=== PATIENT | female | born 1960 | race Caucasian/White ===

== ENCOUNTER 2017-05-21 09:57 | Emergency (ER) | payer OTHER ==
[2017-05-21] MEDS ORDERED: PHENAZOPYRIDINE 100 MG TABLET PO ONE (10:44)
--- NOTE | 2017-05-21 10:48 | ER NURSING DOCUMENTATION ---
Nurse's Notes [facility] Name:Camila Garcia Age:56 yrs Sex:Female :1960 Arrival Date:05/21/2017 Time:09:57 Bed1 Private MD: Diagnosis:Bladder Infection (UTI) Presentation: 05/21 10:01 Acuity: HERNANDEZ 3 lc 10:11 Presenting complaint: Patient states: Hx of UTIs, last 6 months ago. Last noc started rs having burning, frequency and urgency. No f/c, no n/v, no flank pain. Mild lower back pain that is normal for her. Has been getting fair po fluids. No VALADEZ, no dizziness. States the most effective abx for her is amoxicillin. Transition of care: patient was not received from another setting of care. Notified ED Physician of patient's arrival and CC Dr. Lazaro notified. 10:11 Method Of Arrival: Private Vehicle rs Triage Assessment: 10:26 General: Appears comfortable, well developed, well nourished, well groomed, Behavior is rs cooperative, pleasant. Pain: Complains of pain in burning pain with urination Pain does not radiate. Pain currently is 6 out of 10 on a pain scale. Neuro: No deficits noted. Level of Consciousness is awake, alert, Oriented to person, place, time, event. Cardiovascular: No deficits noted. Capillary refill < 3 seconds Heart tones S1 S2 present Murmur absent Edema is absent. Pulses are 3+ in right radial artery. Respiratory: No deficits noted. Respiratory effort is even, unlabored, Respiratory pattern is regular, symmetrical, Breath sounds are clear bilaterally. GI: No deficits noted. Abdomen is flat, non- distended Bowel sounds present X 4 quads. Abd is soft and non tender Denies nausea, vomiting. : Urine is cloudy, Reports burning with urination urgency urinary frequency Denies cramping discharge, incontinence, vaginal bleeding, vaginal itching. Derm: No deficits noted. Skin is pink, warm & dry. Historical: - Allergies: No known drug Allergies; - Home Meds: 1. Synthroid Oral 2. Estradiol Oral 3. Wellbutrin Oral 4. Ambien Oral - PMHx: UTIs; DEPRESSION; insomnia; HYPOTHYROIDISM; - PSHx: HYSTERECTOMY; face lift; - Tetanus: unknown. - Ebola Screening: : Patient negative for fever greater than or equal to 101.5 degrees Fahrenheit, and additional compatible Ebola Virus Disease symptoms. Patient denies exposure to infectious person. Patient denies travel to an Ebola-affected area in the 21 days before illness onset. No symptoms or risks identified at this time. . - Immunization history: Unable to Obtain. - Social history: Smoking status: Patient states was never smoker of tobacco. Patient uses alcohol occasionally. Screenin:38 Infectious Disease Risk None. Abuse screen: Denies threats or abuse. Nutritional rs screening: No deficits noted. Assessment: 10:38 See Triage Assessment done by same RN. rs Vital Signs: 10:20 BP 126 / 66; Pulse 85; Resp 18; Temp 97.9; Pulse Ox 95% on R/A; Pain 5/10; rs ED Course: 10:00 Patient arrived in ED. dp 10:01 Triage completed. 10:10 Gissell Murrell RN is Primary Nurse. rs 10:11 Miguel Angel Lazaro MD is Attending Physician. tl1 10:11 Notified ED Physician of patient's arrival and chief complaint. Dr. Lazaro notified. Arm rs band placed on Bed in low position Call Light in Reach HOB Elevated Side rails up x1. Urine obtained. 10:40 Valuables Remains with patient. Door closed. Noise minimized. Verbal reassurance given. rs Administered Medications: 10:33 Drug: Pyridium 200 mg; Route: PO; rs 10:47 Follow up: Response: No adverse reaction rs Point of Care Testing: Urine Dip: 10:20 pH: 6.0; ; Specific [place]: 1.025; Ketones: Negative; Glucose: Negative; Protein: rs Positive (++); Leukocytes: Positive; Nitrite: Positive (+) ; Blood: Large (+++); Bilirubin: Negative ; Urobilinogen: NormalOther: cloudy yellow Outcome: 10:41 Discharge ordered by MD. tl1 10:47 Discharged to home ambulatory. rs 10:47 Condition: good 10:47 Discharge instructions given to patient, Instructed on discharge instructions, follow up and referral plans. medication usage, Demonstrated understanding of instructions, medications, Prescriptions given X 2. 10:48 Patient left the ED. rs 05/22 10:26 Discharge F/U Call: Unable to reach: no answer rh Signatures: Gissell Murrell RN RN rs Coleman, Linda, RN RN lc Leigh, Tom, MD MD tl1 Shantel Asif Denise dp
[2017-05-21 11:05] LABS: URINE MUCUS NONE SEEN (Up to 25%)
[2017-05-21 11:32] LABS: URINE APPEARANCE CLOUDY; URINE BILIRUBIN NEGATIVE (NEGATIVE); URINE BLOOD 250 Ery/uL (3+) (NEGATIVE); URINE COLOR YELLOW; URINE GLUCOSE NORMAL (NEGATIVE); URINE KETONE 5mg/dL (NEGATIVE); URINE LEUKOCYTE ESTERASE 25 WBC/uL (1+) (NEGATIVE); URINE NITRITE POSITIVE (NEGATIVE); URINE PH 5.5 (5-7); URINE PROTEIN 100mg/dL (2+) (NEG - TRACE); URINE UROBILINOGEN 0.2mg/dL (Normal) (NEG-1mg/dL)
[2017-05-21 11:33] LABS: URINE SQUAMOUS EPITHELIAL CELL 0-5/hpf (<= 15/hpf); URINE WBC 50-100/hpf (0-4/hpf)
--- NOTE | 2017-05-23 10:48 | ER PHYSICIAN DOCUMENTATION ---
Physician Documentation [facility] Name:Camila Garcia Age:56 yrs Sex:Female :1960 Arrival Date:05/21/2017 Time:09:57 Bed1 Private MD: Miguel Angel Sexton Disposition: 05/21 11:00 Chart complete. tl1 Disposition: 05/21/17 10:41 Discharged to Home/Self Care. Impression: Bladder Infection (UTI). - Condition is Good. - Discharge Instructions: BLADDER INFECTION, Female (Adult). - Prescriptions for Pyridium 200 mg Oral tablet - take 1 tablet by ORAL route 3 times per day As needed; 6 tablet. Keflex 500 mg Oral - take 1 capsule by ORAL route every 6 hours for 3 days; 12 capsule. - Medical Reconciliation form form. - Follow up: Private Physician; When: 10 - 14 days; Reason: Recheck today's complaints, Continuance of care. - Problem is new. - Symptoms have improved. HPI: 10:00 This 56 yrs old Female presents to ER via Private Vehicle with complaints of tl1 Urinary Problem. 10:00 The patient presents with urinary symptoms, dysuria, frequency, urgency. Onset: The tl1 symptoms/episode began/occurred last night. Modifying factors: The symptoms are alleviated by nothing, the symptoms are aggravated by nothing. Associated signs and symptoms: Pertinent negatives: cramping, diarrhea, fever, hematuria, nausea, vomiting. Severity of symptoms: At their worst the symptoms were moderate, in the emergency department the symptoms are unchanged. The patient's method of control includes post menopausal. Historical: - Allergies: No known drug Allergies; - Home Meds: 1. Synthroid Oral 2. Estradiol Oral 3. Wellbutrin Oral 4. Ambien Oral - PMHx: UTIs; DEPRESSION; insomnia; HYPOTHYROIDISM; - PSHx: HYSTERECTOMY; face lift; - Tetanus: unknown. - Ebola Screening: : Patient negative for fever greater than or equal to 101.5 degrees Fahrenheit, and additional compatible Ebola Virus Disease symptoms. Patient denies exposure to infectious person. Patient denies travel to an Ebola-affected area in the 21 days before illness onset. No symptoms or risks identified at this time. . - Immunization history: Unable to Obtain. - Social history: Smoking status: Patient states was never smoker of tobacco. Patient uses alcohol occasionally. ROS: 10:00 Positive for urinary symptoms. tl1 10:00 All other systems are negative. Exam: 10:00 Constitutional: This is a well developed, well nourished patient who is awake, alert, tl1 and in no acute distress. 10:00 Cardiovascular: Rate: normal. 10:00 Respiratory: Respirations: normal. 10:00 Abdomen/GI: Palpation: soft, mild abdominal tenderness, in the suprapubic area. 10:00 : CVA tenderness, is absent. Vital Signs: 10:20 BP 126 / 66; Pulse 85; Resp 18; Temp 97.9; Pulse Ox 95% on R/A; Pain 5/10; rs MDM: 10:11 Patient medically screened. tl1 10:30 Differential diagnosis: kidney stone, urinary tract infection. Data reviewed: vital tl1 signs, nurses notes, lab test result(s), urinalysis, hematuria, pyuria, and as a result, I will discharge patient, administer antibiotics. Counseling: I had a detailed discussion with the patient and/or guardian regarding: the historical points, exam findings, and any diagnostic results supporting the discharge/admit diagnosis, the need for outpatient follow up, to return to the emergency department if symptoms worsen or persist or if there are any questions or concerns that arise at home. Response to treatment: There is no appreciated change of the patient's symptoms at this time, and as a result, I will discharge patient. 05/21 11:34 Order name: UA W/ MICRO -CULTURE IF IND EDMS 05/22 08:48 Order name: URINE CULTURE EDMS Dispensed Medications: 10:33 Drug: Pyridium 200 mg; Route: PO; rs 10:47 Follow up: Response: No adverse reaction rs Point of Care Testing: Urine Dip: 10:20 pH: 6.0; ; Specific [place]: 1.025; Ketones: Negative; Glucose: Negative; Protein: rs Positive (++); Leukocytes: Positive; Nitrite: Positive (+) ; Blood: Large (+++); Bilirubin: Negative ; Urobilinogen: NormalOther: cloudy yellow Signatures: Gissell Murrell RN RN rs Miguel Angel Lazaro MD MD tl1
== END 2017-05-21 10:48 | disposition home or self-care (01) ==
LOC: ER 09:57
DX: N39.0 Urinary tract infection, site not specified (principal); B96.20 Unspecified Escherichia coli [E. coli] as the cause of diseases classified elsewhere; Z79.899 Other long term (current) drug therapy
CPT/HCPCS: 81001; 87077; 87086; 87186; 99283